=== PATIENT | female | born 2000 | race Caucasian/White ===

== ENCOUNTER 2018-06-27 17:52 | Emergency (ER) | payer MEDICAID ==
[~2018-06-27] VITALS: Ht 175.3 cm; Wt 51.9 kg
[~2018-06-27 17:52] MED LIST: NO HOME MEDS
[2018-06-27 19:17] LABS: COLOR,URINE STRAW (Yellow); GLUCOSE, URINE NEGATIVE (Neg); KETONES,URINE NEGATIVE (Neg); LEUKOCYTE ESTERASE ,URINE LARGE (Neg); NITRITES, URINE NEGATIVE (Neg); OCCULT BLOOD,URINE SMALL (Neg); PROTEIN,URINE NEGATIVE (Neg); UROBILINOGEN,URINE 0.2 E.U/dL (0.2-1.0)
[2018-06-27 19:20] LABS: URINE HCG NEGATIVE (NEG)
[2018-06-27 19:23] LABS: CLARITY,URINE CLOUDY (Clear); UA COLLECTION TYPE CLN CATCH MIDSTREAM
[2018-06-27 19:24] LABS: WBC,URINE TNTC /HPF (0-4)
[2018-06-27 19:25] LABS: BACTERIA,URINE 3+ /HPF (Neg); SQUAMOUS EPITHELIAL CELL,UR FEW /LPF (FEW)
[2018-06-27] MEDS ORDERED: CEPH500C2 PO (22:13)
[2018-06-27] MEDS ORDERED: ONDA4TAB6 PO (22:13)
[2018-06-27 23:07] VITALS: BP 135/69
== END 2018-06-27 23:11 | disposition home or self-care (01) ==
LOC: ER 17:53
DX: N12 Tubulo-interstitial nephritis, not specified as acute or chronic (principal); Z79.2 Long term (current) use of antibiotics; Z79.899 Other long term (current) drug therapy
CPT/HCPCS: 81001; 81025; 87077; 87088; 87186; 99283